=== PATIENT | female | born 1990 | race Caucasian/White ===

== ENCOUNTER 2016-08-07 08:19 | Emergency (ER) | payer MEDICAID ==
--- NOTE | 2016-08-07 08:54 | ED PDOC ---
Arrival/HPI - General Chief Complaint: Dizziness/Lightheaded Time Seen by Provider: 08/07/16 08:36 Historian: Patient - History of Present Illness Narrative History of Present Illness (Text): 08/07/16 08:54 A 26 year old female, whose past medical history includes anemia, presents to the emergency department complaining of episodes of dizziness for the past week. She describes the feeling as "the room spinning." Patient reports her symptom worsens when she goes quickly from sitting to standing. Patient denies any fever, nausea, vomiting, abdominal pain, urinary symptoms, chest pain, shortness of breath, cough, headache or any other complaints. She denies syncope. She denies cardiac history or family hx of sudden cardiac . She denies current symptoms. Denies any drug use or new medication use. PMD: None Time/Duration: 1 week Symptom Course: Unchanged Quality: Other Context: Other Past Medical History - Provider Review Nursing Documentation Reviewed: Yes - Infectious Disease Hx of Infectious Diseases: None - Pulmonary Hx Asthma: Yes - Psychiatric Hx Substance Use: No Other/Comment: ADHD Family/Social History - Physician Review Nursing Documentation Reviewed: Yes Family/Social History: No Known Family HX Smoking Status: Never Smoked Hx Alcohol Use: No Hx Substance Use: No Allergies/Home Meds Allergies/Adverse Reactions: Allergies No Known Allergies Allergy (Verified 08/07/16 08:28) Home Medications: Home Meds Medication Instructions Recorded Confirmed Albuterol HFA [Ventolin HFA 90 2 puff INH PRN PRN 08/07/16 08/07/16 mcg/actuation (8 g)] Review of Systems - Physician Review All systems were reviewed & negative as marked: Yes - Review of Systems Constitutional: absent: Fatigue, Weight Change, Fevers Eyes: absent: Vision Changes, Photophobia, Eye Pain ENT: absent: Hearing Changes, Tinnitus, Voice Changes Respiratory: absent: SOB, Cough Cardiovascular: absent: Chest Pain, Palpitations, Calf Pain, Orthopnea, Syncope Gastrointestinal: absent: Abdominal Pain, Nausea, Vomiting Genitourinary Female: absent: Dysuria, Frequency, Hematuria, Urine Output Changes Neurological: Dizziness (described as room spinning). absent: Headache, Focal Weakness, Gait Changes, Speech Changes, Facial Droop Endocrine: absent: Diaphoresis Hemo/Lymphatic: absent: Adenopathy Psychiatric: absent: Anxiety Physical Exam Vital Signs Reviewed: Yes Vital Signs Temp Pulse Resp BP Pulse Ox 08/07/16 11:27 72 18 100/58 L 99 08/07/16 11:12 98.1 F 80 16 93/60 L 100 08/07/16 10:22 78 16 85/62 L 100 08/07/16 08:22 98.3 F 86 18 111/63 99 Temperature: Afebrile Blood Pressure: Normal Pulse: Regular Respiratory Rate: Normal Appearance: Positive for: Well-Appearing, Non-Toxic, Comfortable Pain Distress: None Mental Status: Positive for: Alert and Oriented X 3 Finger Stick Blood Glucose: 86 - Systems Exam Head: Present: Atraumatic, Normocephalic Pupils: Present: PERRL Extroacular Muscles: Present: EOMI. No: Other (no nystagmus) Conjunctiva: Present: Normal Ears: Present: NORMAL TM Mouth: Present: Moist Mucous Membranes Pharnyx: Present: Normal. No: ERYTHEMA, EXUDATE Nose (External): Present: Atraumatic Neck: Present: Normal Range of Motion. No: Meningeal Signs, MIDLINE TENDERNESS , Paraspinal Tenderness Respiratory/Chest: Present: Clear to Auscultation, Good Air Exchange. No: Respiratory Distress, Accessory Muscle Use Cardiovascular: Present: Regular Rate and Rhythm, Normal S1, S2. No: Murmurs Abdomen: Present: Normal Bowel Sounds. No: Tenderness, Distention, Peritoneal Signs Back: Present: Normal Inspection Upper Extremity: Present: Normal Inspection. No: Cyanosis, Edema Lower Extremity: Present: Normal Inspection. No: Edema Neurological: Present: GCS=15, CN II-XII Intact, Speech Normal, Motor Func Grossly Intact, Normal Sensory Function, Normal Cerebellar Funct, Gait Normal Skin: Present: Warm, Dry, Normal Color. No: Rashes Psychiatric: Present: Alert, Oriented x 3, Normal Insight, Normal Concentration Medical Decision Making ED Course and Treatment: 08/07/16 08:54 Impression: A 26 year old female with episodes of dizziness, worse with moment described as room spinning. Patient denies any fever, cough,headache, chest pain or other complaints. Differential Diagnosis included but are not limited to: vs. Electrolyte imbalance vs. Dehydration vs. Arrhythmia vs. Positional vertigo Plan: -- EKG -- Labs -- Antivert and IV fluids -- Reassess and disposition Progress Notes: 08/07/16 09:59 Orthostatic vitals done and they are normal. Labs reviewed, negative test. 08/07/16 11:04 Patient reports that she feels well and is ambulating around the ED without issue after 1L IVF and meclizine. Labs WNL 08/07/16 11:53 EKG shows NSR at 82bpm with sinus arrhythmia. T wave inversions in V1-V3. Patient has no chest pain. Patient is young with no cardiac risk factors and was instructed to follow-up with cardiology. QTc:411 - Lab Interpretations Lab Results: 08/07/16 09:40 08/07/16 09:40 Lab Results 08/07/16 09:40: WBC 3.8 L, RBC 4.32, Hgb 12.8, Hct 37.0, MCV 85.6, MCH 29.6, MCHC 34.6, RDW 13.1, Plt Count 186, MPV 11.0, Gran % 39.2 L, Lymph % (Auto) 48.7 H, [place] % (Auto) 7.1 H, Eos % (Auto) 4.7, Baso % (Auto) 0.3, Gran # 1.49, Lymph # 1.9, [place] # 0.3, Eos # 0.2, Baso # 0.01, Sodium 137, Potassium 4.1, Chloride 104, Carbon Dioxide 25, Anion Gap 12, BUN 10, Creatinine 0.6, Est GFR ( Amer) > 60, Est GFR (Non-Af Amer) > 60, Random Glucose 90, Calcium 8.8, Total Bilirubin 0.5, AST 15, ALT 12, Alkaline Phosphatase 38, Total Protein 6.9 , Albumin 3.9, Globulin 3.1, Albumin/Globulin Ratio 1.3 I have reviewed the lab results: Yes - Medication Orders Current Medication Orders: Discontinued Medications Sodium Chloride (Sodium Chloride 0.9%) 1,000 mls @ 999 mls/hr IV .Q1H1M STA Stop: 08/07/16 10:11 Last Admin: 08/07/16 09:47 Dose: 999 MLS/HR eMAR Start Stop Document 08/07/16 09:47 [facility] (Rec: 08/07/16 09:49 [facility] [id number]) Intravenous Solution Start Date 08/07/16 Start Time 09:49 End Date 08/07/16 End time 10:49 Total Infusion Time 60 Meclizine HCl (Antivert) 25 mg PO STAT STA Stop: 08/07/16 09:12 Last Admin: 08/07/16 09:47 Dose: 25 MG - Scribe Statement The provider has reviewed the documentation as recorded by the Prakash Chanel Provider Scribe Attestation: All medical record entries made by the Scribe were at my direction and personally dictated by me. I have reviewed the chart and agree that the record accurately reflects my personal performance of the history, physical exam, medical decision making, and the department course for this patient. I have also personally directed, reviewed, and agree with the discharge instructions and disposition. Disposition/Present on Arrival - Present on Arrival Any Indicators Present on Arrival: No History of DVT/PE: No History of Uncontrolled Diabetes: No Urinary Catheter: No History of Decub. Ulcer: No History Surgical Site Infection Following: None - Disposition Have Diagnosis and Disposition been Completed?: Yes Diagnosis: Vertigo Disposition: HOME/ ROUTINE Disposition Time: 11:05 Patient Plan: Discharge Condition: GOOD Discharge Instructions (ExitCare): Vertigo (ED) Additional Instructions: Follow up with PMD within 2 days. Return to ED if condition worsens. Take meclizine as needed. Prescriptions: Meclizine [Meclizine*] 25 mg PO Q6 #30 tab Referrals: PCP,NO [Primary Care Provider] - Follow up with primary
[2016-08-07] MEDS ORDERED: Sodium Chloride 0.9% 1,000 ML IV STA (09:11)
[2016-08-07 09:53] LABS: ADD MANUAL DIFF? NO
[2016-08-07 09:58] LABS: BASO # 0.01 K/mm3 (0.0-2.0); BASO % 0.3 % (0.0-3.0); EOS # 0.2 (0.0-0.7); EOS % 4.7 % (1.5-5.0); GRAN # 1.49 (1.4-6.5); GRAN % 39.2 % (50.0-68.0); LYMPH # 1.9 (1.2-3.4); LYMPH % 48.7 % (22.0-35.0); MEAN CELL VOLUME 85.6 fL (80.0-105.0); MEAN CORPUSCULAR HEMOGLOBIN 29.6 pg (25.0-35.0); MEAN CORPUSCULAR HGB CONC 34.6 g/dl (31.0-37.0); MONO # 0.3 (0.1-0.6); MONO % 7.1 % (1.0-6.0); PLATELET COUNT 186 10^3/uL (120.0-450.0); RED CELL DISTRIBUTION WIDTH 13.1 % (11.5-14.5); WHITE BLOOD COUNT 3.8 10^3/ul (4.5-11.0)
[2016-08-07 10:04] LABS: ALB/GLOB RATIO 1.3 (1.1-1.8); ALKALINE PHOSPHATASE 38 U/L (38-133); ALT/SGPT 12 U/L (7-56); AST/SGOT 15 U/L (15-39); BILIRUBIN,TOTAL 0.5 mg/dL (0.2-1.3); BLOOD UREA NITROGEN 10 mg/dL (7-21); CALCIUM 8.8 mg/dL (8.4-10.5); CARBON DIOXIDE 25 mmol/L (21-33); CHLORIDE 104 mmol/L (98-107); GFR AFRICAN-AMERICAN > 60; GLUCOSE,RANDOM 90 mg/dL (70-110); POTASSIUM 4.1 mmol/L (3.6-5.0); SODIUM 137 mmol/L (132-148); TOTAL PROTEIN 6.9 g/dL (5.8-8.3)
[2016-08-07 11:13] VITALS: TEMP 98.1
[2016-08-07 11:28] VITALS: BP 100/58; PULSE 72; RESP 18; O2SAT 99
--- NOTE | 2016-08-07 17:49 | CARD ---
APPROVED REPORT EKG Measurement Heart [id number] <Conclusion> Normal sinus rhythm with sinus arrhythmia T wave abnormality, consider anterior ischemia Abnormal ECG
== END 2016-08-07 11:28 | disposition home or self-care (01) ==
LOC: ED 08:19
DX: R42 Dizziness and giddiness (principal)
CPT/HCPCS: 80053; 82948; 85025; 93005; 96360; 99285; J7040

== ENCOUNTER 2018-10-20 09:37 | Emergency (ER) | payer MEDICAID ==
[2018-10-20 10:03] VITALS: BMI 30.2
[2018-10-20 10:08] VITALS: RESP 18
[2018-10-20] MEDS ORDERED: Albuterol-Ipratrop 3 mg / 0.5 (3 ml) UD IH STA (10:22)
--- NOTE | 2018-10-20 10:33 | ED PDOC ---
Arrival/HPI - General Chief Complaint: Chest Pain Time Seen by Provider: 10/20/18 09:39 Historian: Patient - History of Present Illness Narrative History of Present Illness (Text): 10/20/18 09:39 Patient is a 28 year old female, with a past medical history of anemia, asthma, and breast implants, who presents to the emergency department complaining of misternal chest pain for two days. Patient informs sitting at home during onset and describes pain as "tightness". Patient informs chest pain is worsened laying down but is improved with deep breathing. Patient informs chest pain is similar to her asthma chest tightness. Patient also notes secondary complaint of midsternal chest lump. She reports that she is not sure if this is secondary to her breast implants. Patient denies hx of blood clots, hypertension, or diabetes. Also denies taking control pills or tobacco use. Denies leg swelling.. Patient denies fevers, chills, headache, dizziness, vision changes, abdominal pain, nausea, vomiting, diarrhea, dysuria, hematuria, urinary / bowel changes, trauma to breast implants, recent travel or long car rides, leg swelling, back pain, neck pain, rash, diaphoresis, or any other complaints. Time/Duration: < week (2 days) Quality: Tightness Activities at Onset: Light Context: Home Past Medical History - Provider Review Nursing Documentation Reviewed: Yes Primary Care Provider: Non [facility] Provider, - Infectious Disease Hx of Infectious Diseases: None - Tetanus Immunization Tetanus Immunization: Unknown - Past Medical History Past Medical History: No Previous - Cardiac Hx Cardiac Disorders: No - Pulmonary Hx Asthma: Yes - Neurological Hx Neurological Disorder: No - HEENT Hx HEENT Disorder: No - Renal Hx Renal Disorder: No - Endocrine/Metabolic Hx Endocrine Disorders: No - Hematological/Oncological Hx Blood Disorders: No - Integumentary Hx Dermatological Disorder: No - Musculoskeletal/Rheumatological Hx Musculoskeletal Disorders: No - Gastrointestinal Hx Gastrointestinal Disorders: No - Genitourinary/Gynecological Hx Genitourinary Disorders: No - Psychiatric Hx Substance Use: No Other/Comment: ADHD - Past Surgical History Past Surgical History: No Previous - Surgical History Other/Comment: tummy tuck, breast augmentation - Anesthesia Hx Anesthesia: Yes Hx Anesthesia Reactions: No Hx Malignant Hyperthermia: No - Suicidal Assessment Feels Threatened In Home Enviroment: No Family/Social History - Physician Review Nursing Documentation Reviewed: Yes Family/Social History: Unknown Family HX Smoking Status: Never Smoked Hx Alcohol Use: No Hx Substance Use: No Hx Substance Use Treatment: No Allergies/Home Meds Allergies/Adverse Reactions: Allergies No Known Allergies Allergy (Verified 10/20/18 10:09) Home Medications: Home Meds Medication Instructions Recorded Confirmed Albuterol HFA [Ventolin HFA 90 2 puff INH PRN PRN 08/07/16 10/20/18 mcg/actuation (8 g)] Review of Systems - Review of Systems Constitutional: absent: Fevers, Other (chills) Eyes: absent: Vision Changes Respiratory: absent: SOB, Cough Cardiovascular: Chest Pain (midsternal, described as tightness). absent: Edema Gastrointestinal: absent: Abdominal Pain, Stool Changes, Constipation, Diarrhea, Nausea, Vomiting Genitourinary Female: absent: Dysuria, Frequency, Hematuria, Urine Output Changes, Vaginal Discharge Musculoskeletal: Other (midsternal chest lump). absent: Back Pain, Neck Pain Skin: absent: Rash Neurological: absent: Headache, Dizziness Endocrine: absent: Diaphoresis Physical Exam Vital Signs Reviewed: Yes Vital Signs Temp Pulse Resp BP Pulse Ox 10/20/18 09:43 97.8 F 74 18 124/77 98 Temperature: Afebrile Blood Pressure: Normal Pulse: Regular Respiratory Rate: Normal Appearance: Positive for: Well-Appearing, Non-Toxic, Comfortable Pain Distress: None Mental Status: Positive for: Alert and Oriented X 3 - Systems Exam Head: Present: Atraumatic, Normocephalic Pupils: Present: PERRL Extroacular Muscles: Present: EOMI Conjunctiva: Present: Normal Mouth: Present: Moist Mucous Membranes Neck: Present: Normal Range of Motion Respiratory/Chest: Present: Clear to Auscultation, Good Air Exchange, Other (no palpable lump appreciated). No: Respiratory Distress, Accessory Muscle Use, Wheezes, Rales, Rhonchi Cardiovascular: Present: Regular Rate and Rhythm, Normal S1, S2. No: Murmurs, Rub, Gallop Abdomen: Present: Normal Bowel Sounds. No: Tenderness, Distention, Peritoneal Signs, Rebound, Guarding Breast/Axillary: Present: Other (bilateral breast implants) Back: Present: Normal Inspection Upper Extremity: Present: Normal Inspection. No: Cyanosis, Edema Lower Extremity: Present: Normal Inspection. No: Edema Neurological: Present: GCS=15, CN II-XII Intact, Speech Normal Skin: Present: Warm, Dry, Normal Color. No: Rashes Psychiatric: Present: Alert, Oriented x 3, Normal Insight, Normal Concentration Medical Decision Making ED Course and Treatment: 10/20/18 09:39 Impression: Patient is a 28 year old female, with a past medical history of anemia, asthma, and breast implants, who presents to the emergency department complaining of midsternal chest pain since 2 days. Patient also informs of midsternal chest lump. Plan: -- EKG -- Chest X-Ray -- Duoneb -- Labs -- POC Urine Test -- Reassess and disposition Prior Visits: Notes and results from previous visits were reviewed. Progress Notes: 10/20/18 10:45 PERC negative 10/20/18 12:20 Cxray: No active pulmonary disease. EKG shows NSR at 75bpm with t wave inversions in v1-v3 unchanged from prior on 08/07/16. Labs grossly normal. 10/20/18 12:24 On reevaluation, patient reports feeling better after nebulizer. Cannot appreciate chest lump. WBC WNL. Instructed on importance of further evaluation by PMD. Requesting refill of asthma medication upon discharge. Made aware to follow-up with cardiology 10/20/18 17:31 - RAD Interpretation Radiology Orders: 10/20/18 10:01 CHEST TWO VIEWS (PA/LAT) [RAD] Stat - Medication Orders Current Medication Orders: Discontinued Medications Albuterol/Ipratropium (Duoneb 3 Mg/0.5 Mg (3 Ml) Ud) 3 ml IH STAT STA Stop: 10/20/18 10:23 - Scribe Statement The provider has reviewed the documentation as recorded by the Scribe Carrillo Retana All medical record entries made by the Scribe were at my direction and personally dictated by me. I have reviewed the chart and agree that the record accurately reflects my personal performance of the history, physical exam, medi ole decision making, and the department course for this patient. I have also personally directed, reviewed, and agree with the discharge instructions and disposition. Disposition/Present on Arrival - Present on Arrival Any Indicators Present on Arrival: No History of DVT/PE: No History of Uncontrolled Diabetes: No Urinary Catheter: No History of Decub. Ulcer: No History Surgical Site Infection Following: None - Disposition Have Diagnosis and Disposition been Completed?: Yes Diagnosis: Chest tightness Disposition: HOME/ ROUTINE Disposition Time: 12:22 Patient Plan: Discharge Condition: GOOD Discharge Instructions (ExitCare): Asthma in Adults, Chest Pain Additional Instructions: Use pump as needed for chest tightness/SOB. Return to ED if condition worsens. Follow-up with cardiology. Follow-up with PMD for "lump in chest" Prescriptions: Albuterol/Ipratropium [Combivent Respimat] 1 puff IH Q6 PRN #1 inhaler PRN Reason: Wheezing Referrals: PCP,NO [Primary Care Provider] - Follow up with primary Bonilla Tomlinson MD [Staff Provider] - Follow up with primary Forms: [employer] (Samoan)
[2018-10-20 10:37] LABS: BASO # 0.02 K/mm3 (0.0-2.0); BASO % 0.4 % (0.0-3.0); EOS # 0.1 (0.0-0.7); HEMOGLOBIN 13.1 g/dL (12.0-16.0); LYMPH # 2.1 (1.2-3.4); MEAN CELL VOLUME 86.9 fl (80.0-105.0); MEAN CORPUSCULAR HEMOGLOBIN 28.6 pg (25.0-35.0); MEAN CORPUSCULAR HGB CONC 32.9 g/dl (31.0-37.0); MEAN PLATELET VOLUME 11.3 fl (7.0-11.0); MONO # 0.4 (0.1-0.6); MONO % 8.5 % (1.0-6.0); RBC 4.58 10^6/uL (3.5-6.1); RED CELL DISTRIBUTION WIDTH 13.3 % (11.5-14.5); WHITE BLOOD COUNT 4.7 10^3/uL (4.5-11.0)
[2018-10-20 10:46] LABS: ALB/GLOB RATIO 1.2 (1.1-1.8); ALBUMIN 3.8 g/dL (3.0-4.8); ALT/SGPT 28 U/L (7-56); AST/SGOT 19 U/L (14-36); BLOOD UREA NITROGEN 13 mg/dL (7-21); CALCIUM 8.7 mg/dL (8.4-10.5); GFR NON-AFRICAN AMERICAN > 60
--- NOTE | 2018-10-20 12:13 | RAD ---
Date of service: 10/20/2018 HISTORY: Chest pain COMPARISON: No prior. TECHNIQUE: Chest PA and lateral FINDINGS: LINES AND TUBES: None. LUNG AND PLEURA: The lungs are well inflated and clear. No pleural effusion or pneumothorax. HEART AND MEDIASTINUM: The heart is not enlarged. No aortic atherosclerotic calcifications present. The hilar and mediastinal contours are within normal limits. SKELETAL STRUCTURES: The bony structures are within normal limits for the patient's age. VISUALIZED UPPER ABDOMEN: Normal. OTHER FINDINGS: None. IMPRESSION: No active pulmonary disease.
[2018-10-20 12:28] VITALS: BP 121/71; PULSE 71; TEMP 98; O2SAT 99
--- NOTE | 2018-10-21 22:35 | CARD ---
APPROVED REPORT Date of service: 10/20/2018 EKG Measurement Heart [id number] <Conclusion> Normal sinus rhythm Nonspecific T wave abnormality Abnormal ECG
== END 2018-10-20 12:46 | disposition home or self-care (01) ==
LOC: ED 09:37
DX: R07.89 Other chest pain (principal)